=== PATIENT | female | born 1945 ===

== ENCOUNTER 2022-08-05 10:30 | Outpatient (RCR) | payer OTHER, SELFPAY ==
--- NOTE | 2022-07-24 17:54 | ST.OPIE ---
Visit Care Team Role Provider Type MEG Ovalle Attending Provider Non-Staff Family Provider Primary Care Provider Referring Provider Specialty: Family Practice [facility] [address], [place], [address] Email: Speech-Language Pathology Initial Evaluation FUR FEEDER Voice Resonance Evaluation Start: 07/24/22 10:30 Freq: Status: Active Protocol: Document 07/24/22 17:06 LNK (Rec: 07/24/22 17:54 LNK [id number]) Voice and Resonance Assessment Session Time Visit Start Time 10:30 Visit Stop Time 11:45 Total Visit Minutes 75 Visit Information Visit Number 1 Plan of Care Dates 07/24/22-10/24/22 Next Note Type Next Note Type Treatment Note Referral Referring Physician Dr. Liz Foreman Reason for Referral voice evaluation Setting Setting Outpatient Care Patient History Patient History Pt was seen for a voice evaluatin at the referral of Dr Karie foreman. Pt reported a long history of vocal dysfunction that started after she began CPAP treatment in 2018. Pt stated that after using the CPAP for about 3 weeks, she began having voice problems with decreased vocal quality and a dry cough. She was referred to ENT to reported normal vocal folds and function. In April 2021, there was a recall of the pt's CPAP machine due to emission of foam/filter particles and toxic elements which may result in cancer. Her physician told her to stop using the PAP and another was ordered. She has just received her new CPAP within the last week or two. In March 2022, the pt returned to the ENT who again stated her vocal folds were normal in form and function. Pt has a PMH of double mastectomy with follow up treatment with the prescription Anistrozol, which she reported she has recently discontinued. additionally she reported a history of GERD for which she is taking omneprozol 1x/day. Pt also reported yvtete is taking care of her who has had a CVA and had recent brain surgery. Pt describes her voice as grainy with a tremor. She stated it is exhausting to talk. Vision Comments wears reading glasses Occupational Status Occupation Status retired Previous Therapy Previous Speech-Language Therapy No Oral Motor Assessment Source: [employer] ([employer]). Oral-Motor Eval Completed Informal observation indicated structures and function to be grossly WNL Subjective Subjective Pt was well prepared for her evaluation bringing information regarding her vocal changes and appointments attended - Laryngeal Performance S/Z Ratio S/Z Ratio .88 Functional for Speech Yes Reduced Laryngeal Function Relative to Yes: Decreased respiratory Respiration efficiency overall Voice Handicap Index Function Subtotal 17 Physical Subtotal 36 Emotional Subtotal 22 Total Score 75 Severity Severe (61-120) CAPE-V Overall Severity 81 Roughness 80 Breathiness 45 Strain 70 Pitch WFL Loudness WFL Normal Resonance? Yes Additional Features Diplophonia,Glottal Avilez, Asthenia,Pitch Instability, Tremor Maximum Phonation Time MPT Norms: Women (15-25) Men (25-35) Loudness (50-60 dB); Speaking Rate: Oral Reading of Sentences (190 Words Per Minute); Oral Reading of Paragraphs (160-170 WPM); Speaking Rate in Conversation (150-250 WPM) Maximum Phonation Time 11.9 Maximum Phonation Time Reduced Jitter/Shimmer Norms: Jitter (Less than or equal to 1.040% - Frequency) Norms: Shimmer (Less than or equal to 3.810% - Amplitude) Jitter 2.07 Shimmer 8.35 Pitch Walton Pitch Walton Pitch Breaks,Reduced Range Muscle Tension Assessment Muscle Tension Assessment Neck,Shoulders Muscle Tension Assessment Comments Observation of external laryngeal muscle tension Tongue Base Tension Tongue Base Tension w/ Voicing Yes Tongue Base Tension at Rest No Breath Support Breath Support At Rest Abdominal Breath Support Sustained Phonation Mixed Breath Support Conversation Mixed Speaks on Room Air Yes Postural Alignment Stance Balanced Neck Static Shoulders Symmetrical Voice Pitch Range Norms: Women (100-300 Hz) Men (70-250 Hz) Fundamental Frequency Norms: Women (Mean: 225 Hz; Range: 155-334 Hz) Men ( Mean: 128 Hz; Range: 85-196 Hz) Voice Pitch Normal Voice Loudness Normal Voice Phonatory-based Quality Strident,Harsh,Tremor,Glottal Avilez,Pitch Breaks,Diplophonia Fundamental Frequency 199 Hz Paradoxical Vocal Fold Movement No Indications Resonance Nasal Resonance Normal Oral Resonance Normal Therapeutic Techniques Therapy Tactics Shifting Tone Focus,Increase Fundamental Frequency Findings Findings Moderate-Severe Impairment Voice/Resonance Assessment Assessment Pt presented with moderately severe vocal quality dysfunction. Pt's results for %Jitter and %Shimmer demonstrated significant variability of vocal fold vibration along the horizontal and vertical planes of the vocal folds. Pt's vocal quality was observed to be harsh, rough, diplophonic and limited in pitch variation. Additionally there was significant glottal avilez observed which contributed to the roughness of the quality of her voice. A vocal tremor was evident during sustained phonation. Respiratory support or voicing was reduced as as evidenced by her sustained phonation time. Pt was unable to remember if her visits to the ENT were for laryngoscopic or stroboscopic assessment. Stroboscopy is the better diagnostic tool to determine vocal dysfunction etiology. Vocal therapy is recommended. Prognosis Rehabilitation Potential Good - Recommendations Treatment Recommended Yes Treatment Frequency/Duration weekly Short Term Goals 1. pt will understand and follow a vocal hygiene therapy program to ease the vocal tension. 2. pt will be able to successfully use abdominal breathing with voicing 3. pt will participate in a structured therapy program targeting frontal tone focus with smooth phonation in all speaking contexts Halfway Goals Pt's vocal quality will improve to WNL Patient/Caregiver Education Patient/Family Education Described results of evaluation,Patient Understanding,Patient Demonstration,Patient Needs More Info
--- NOTE | 2022-07-24 17:56 | ST.OPPOC ---
Physical, Occupational & Speech Therapy At [facility] Visit Care Team Role Provider Type Rocío Foreman, ESTEFANÍA-Inez Attending Provider Non-Staff Family Provider Primary Care Provider Referring Provider Address: [facility] [address], [place], [address] Speech Pathology Plan of Care Plan of Care Dates 07/24/22-10/24/[address] Liz Foreman Patient History Pt was seen for a voice evaluation at the referral of Dr. Foreman. Pt reported a long his tory of vocal dysfunction that started after she began CPAP treatment in 2018. Pt stated that after using the CPAP for about 3 weeks, she began having voice problems with decreased vocal quality and a dry cough. She was referred to ENT to reported normal vocal folds and function. In April 2021, there was a recall of the pt's CPAP machine due to emission of foam/filter particles and toxic elements which may result in cancer. Her physician told her to stop using the PAP and another was ordered. She has just received her new CPAP within the last week or two. In March 2022, the pt returned to the ENT who again stated her vocal folds were normal in form and function. Pt has a PMH of double mastectomy with follow up treatment with the prescription Anistrozol, which she reported she has recently discontinued. additionally she reported a history of GERD for which she is taking omneprozol 1x/day. Pt also reported that she is taking care of her who has had a CVA and had recent brain surgery. Pt describes her voice as grainy with a tremor. he stated it is exhausting to talk. Derrick Boat Runner Goals Pt's vocal quality will improve to WNL Results: Pt presented with moderately severe vocal quality dysfunction. Pt's results for %Jitter and %Shimmer demonstrated significant variability of vocal fold vibration along the horizontal and vertical planes of the vocal folds. Pt's vocal quality was observed to be harsh, rough, diplophonic and limited in pitch variation. Additionally there was significant glottal baez observed which contributed to the roughness of the quality of her voice. A vocal tremor was evident during sustained phonation. Respiratory support or voicing was reduced as as evidenced by her sustained phonation time. Pt was unable to remember if her visits to the ENT were for laryngoscopic or stroboscopic assessment. Stroboscopy is the better diagnostic tool to determine vocal dysfunction etiology. Vocal therapy is recommended. Prognosis Rehabilitation Potential Good - Recommendations Treatment Recommended Yes Treatment Frequency/Duration weekly Short Term Goals 1. pt will understand and follow a vocal hygiene therapy program to ease the vocal tension. 2. pt will be able to successfully use abdominal breathing with voicing 3. pt will participate in a structured therapy program targeting frontal tone focus with smooth phonation in all speaking contexts Jail Goals Pt's vocal quality will improve to WNL Patient/Caregiver Education Patient/Family Education Described results of evaluation,Patient Understanding,Patient Demonstration,Patient Needs More Info Electronically Signed by: JUAN DIEGO Mcclain 07/24/22 9434 If you are in agreement with this Plan of Care, please return a signed and dated copy. I have reviewed this Plan of Care and certify that the skilled therapy services above are required to meet the patient?s needs. Physician Signature Date Printed Name and Credentials Clinical Instructor Signature Printed Name and Credentials
--- NOTE | 2022-08-05 17:37 | ST.OPTN ---
Visit Care Team Role Provider Type MEG Ovalle Attending Provider Non-Staff Family Provider Primary Care Provider [facility] [address], [place], [address] PATCH SANDER Treatment Note PATCH SANDER Treatment Note Start: 07/24/22 10:30 Freq: Status: Active Protocol: Document 08/05/22 17:28 LNK (Rec: 08/05/22 17:37 LNK [id number]) Speech Pathology Treatment Note Session Time Visit Start Time 10:30 Visit Stop Time 11:30 Total Visit Minutes 60 Visit Information Visit Number 2 Setting Treatment Setting Outpatient Care Visit Type Note Type Treatment Note Next Note Type Next Note Type Treatment Note General Information Patient History Pt was seen for a voice evaluation at the referral of Dr Karie Foreman. Pt reported a long his tory of vocal dysfunction that started after she began CPAP treatment in 2018. Pt stated that after using the CPAP for about 3 weeks, she began having voice problems with decreased vocal quality and a dry cough. She was referred to ENT to reported normal vocal folds and function. In April 2021, there was a recall of the pt's CPAP machine due to emission of foam/filter particles and toxic elements which may result in cancer. Her physician told her to stop using the PAP and another was ordered. She has just received her new CPAP within the last week or two. In March 2022, the pt returned to the ENT who again stated her vocal folds were normal in form and function. Pt has a PMH of double mastectomy with follow up treatment with the prescription, Anistrozol, which she reported she has recently discontinued. additionally she reported a history of GERD for which she is taking omneprozol 1x/day. Pt also reported that she is taking care of her who has had a CVA and had recent brain surgery. Pt describes her voice as grainy with a tremor. he stated it is exhausting to talk. Subjective Identification Type Name Identification Reconciled With Other Observations/Patient Presentation pt mentioned concern with the winter weather about making the long drive from [facility] ([place]). She asked about [facility] providing teletherapy. Replied that the is is currently not available through [facility]. Chief Complaint(s) Voice Additional Areas of Concern swallowing Rehab Expectation/Goals: Patient Goals improve vocal quality Patient Knowledge/Awareness of PATCH SANDER Role Excellent in Treatment Objective Short Term Goals 1. pt will understand and follow a vocal hygiene therapy program to ease the vocal tension. 2. pt will be able to successfully use abdominal breathing with voicing 3. pt will participate in a structured therapy program targeting frontal tone focus with smooth phonation in all speaking contexts Hide Examiner Goals Pt's vocal quality will imprive to WNL Treatment Activities Reviewed the pt's last ENT report with the pt. Recommended that pt get stroboscopy /[facility] for more specific evaluation of VF/function. Reviewed LPR vs. GERD and effects on the VF . Abdominal breathing/tone focus introduced. Using a supine position, the pt was instructed to place a heavy book on abdomen and focus on relaxed breathing and movement of the lower abdomen. Pt was instructed to work with breath work ands to slowly introduce a sigh. Vocal quality with sigh improved significantly. Assessment Patient Response to Treatment Excellent Rehab Potential Excellent Impairments Identified Voice Plan Amount of Therapy Recommended 3 Months Provided Patient/Caregiver Instruction Home Exercise Program
--- NOTE | 2022-12-09 17:57 | ST.OPDS ---
Visit Care Team Role Provider Type MEG Ovalle Attending Provider Non-Staff Family Provider Primary Care Provider [facility] [address], [place], [address] BUSINESS OBJECTS ARCHITECT Treatment Note BUSINESS OBJECTS ARCHITECT Treatment Note Start: 07/24/22 10:30 Freq: Status: Active Protocol: Document 12/09/22 17:56 LNK (Rec: 12/09/22 17:57 LNK [id number]) Speech Pathology Treatment Note Visit Type Note Type Discharge Summary General Information Patient History Pt was seen for a voice evaluation at the referral of Dr Karie Foreman. Pt reported a long his tory of vocal dysfunction that started after she began CPAP treatment in 2018. Pt stated that after using the CPAP for about 3 weeks, she began having voice problems with decreased vocal quality and a dry cough. She was referred to ENT to reported normal vocal folds and function. In April 2021, there was a recall of the pt's CPAP machine due to emission of foam/filter particles and toxic elements which may result in cancer. Her physician told her to stop using the PAP and another was ordered. She has just received her new CPAP within the last week or two. In March 2022, the pt returned to the ENT who again stated her vocal folds were normal in form and function. Pt has a PMH of double mastectomy with follow up treatment with the prescription Anistrozol, which she reported she has recently discontinued. additionally she reported a history of GERD for which she is taking omneprozol 1x/day. Pt also reported that she is taking care of her who has had a CVA and had recent brain surgery. Pt describes her voice as grainy with a tremor. he stated it is exhausting to talk. Subjective Observations/Patient Presentation pt mentioned concern with the winter weather about making the long drive from [facility] ([place]). She asked about providing teletherapy. Replied that the is is currently not available through . Patient Knowledge/Awareness of BUSINESS OBJECTS ARCHITECT Role Excellent in Treatment Objective Short Term Goals 1. pt will understand and follow a vocal hygiene therapy program to ease the vocal tension. 2. pt will be able to successfully use abdominal breathing with voicing 3. pt will participate in a structured therapy program targeting frontal tone focus with smooth phonation in all speaking contexts Treatment Activities pt phoned to cancel future appointments as she is working with BUSINESS OBJECTS ARCHITECT via telehealth
== END 2022-12-10 14:51 | disposition home or self-care (01) ==
LOC: SP 10:30
PROVIDERS: Family Provider Registered Nurse; PCP Registered Nurse; Referring Provider Registered Nurse; Visit Provider Registered Nurse
DX: R49.0 Dysphonia (principal)
CPT/HCPCS: 92507; 92520; 92524